=== PATIENT | female | born 2000 | race Caucasian/White ===

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

== ENCOUNTER 2019-06-11 17:49 | Emergency (ER) | payer BC, OTHER ==
[~2019-06-11] VITALS: Ht 149.9 cm; Wt 47.0 kg
[~2019-06-11 17:49] MED LIST: ALBU8.5H8 INH; CETI10CA PO; FLUT12HF IH; IBUP-1542 PO; IBUP-1561 PO; MOME17SP14 NASAL; PRED20TA PO; PSEU120T11 PO
[2019-06-11 18:11] VITALS: Ht 149.9 cm; Wt 47.0 kg
--- NOTE | 2019-06-11 19:25 | ERD ---
ER Documentation Chief Complaint Chief Complaint sob HPI The patient is a 18-year-old female, presenting to the ER because of intermittent cough with dyspnea for 1 week, denies fever, chills, nasal congestion, neck pain, chest pain, the coughing spell made her short of breath, denies abdominal pain, vomiting, dysuria, diarrhea. She does not smoke nor drink. Past medical history: Asthma Past surgical history: None ROS All systems reviewed and are negative except as per history of present illness. Medications Home Meds Active Scripts Prednisone* (Prednisone*) 20 Mg Tab, 50 MG PO DAILY for 5 Days, TAB Prov:IMANI HORTON MD 06/11/19 Salmeterol Xinaf-Fluticasone* (Advair HFA*) 45/212 Aerosol Inhaler, 2 INH IH BID, #1 INHALER Prov:IMANI HORTON MD 06/11/19 Albuterol Sulfate* (Proair HFA*) 8.5 Gm Hfa.aer.ad, 2 PUFF INH Q4H PRN for WHEEZING AND SOB, #1 INHALER Prov:IMANI HORTON MD 06/11/19 Pseudoephedrine Hcl (Sudafe 12-Hour) 120 Mg Tablet.er, 120 MG PO BID PRN for CONGESTION, #6 TAB.SA Prov:NAYE SHOEMAKER PA-C 11/05/17 Cetirizine Hcl* (Zyrtec*) 10 Mg Capsule, 10 MG PO DAILY, #10 TAB.CHEW Prov:NAYE SHOEMAKER PA-C 11/05/17 Ibuprofen* (Motrin*) 600 Mg Tab, 600 MG PO Q6, #30 TAB Prov:NAYE SHOEMAKER PA-C 11/05/17 Mometasone Furoate* (Nasonex*) 50 Mcg/[place] - 17 Gm [place].pump, 1 SPRAY NASAL BID, #1 BOTTLE IN EACH NOSTRIL Prov:NAYE SHOEMAKER PA-C 11/05/17 Ibuprofen* (Motrin*) 400 Mg Tab, 400 MG PO Q6H PRN for PAIN AND OR ELEVATED TEMP, #30 Prov:DK ISRAEL NP 08/25/15 Allergies Allergies: Coded Allergies: No Known Drug Allergies (Verified Allergy, Unknown, 08/25/15) PMhx/Soc History of Surgery: No Anesthesia Reaction: No Hx Neurological Disorder: No Hx Respiratory Disorders: No Hx Cardiac Disorders: No Hx Psychiatric Problems: No Hx Miscellaneous Medical Probl: No Hx Alcohol Use: No Hx Substance Use: No Hx Tobacco Use: No Physical Exam Vitals Vital Signs Date Temp Pulse Resp B/P (MAP) Pulse Ox O2 O2 Flow FiO2 Time Delivery Rate 06/11/19 97.9 88 20 105/69 100 Room Air 20:20 (81) 06/11/19 82 18 100 21 19:42 06/11/19 97.9 104 26 101/69 100 18:11 (80) Physical Exam Const: No acute distress. Head: Atraumatic. Eyes: Normal Conjunctiva. ENT: Normal External Ears, Nose and Mouth. Neck: Full range of motion. No meningismus. Resp: Clear to auscultation bilaterally. Cardio: Minimal bilateral expiratory wheezes Abd: Soft, non distended, normal bowel sounds, non tender. Skin: No petechiae or rashes. Back: No midline or flank tenderness. Ext: No cyanosis, or edema. Neur: Awake and alert. No focal deficit Psych: Normal Mood and Affect. Results 24 hrs Current Medications Medications Dose Sig/Chucky Start Time Status Last (Trade) Ordered Route PRN Stop Time Admin Dose Reason Admin Ipratropium 0.5 mg ONCE STAT 06/11/19 DC 06/11/19 [place] NEB 19:31 06/11/19 19:42 (Atrovent 19:33 0.02% (Neb)) 1.25 mg ONCE STAT 06/11/19 DC 06/11/19 Levalbuterol INH 19:31 06/11/19 19:42 (Xopenex 19:33 Neb) Prednisone 50 mg ONCE ONCE 06/11/19 DC 06/11/19 (Prednisone) PO 20:00 06/11/19 19:50 20:01 Procedures/MDM MEDICAL MAKING DECISION: The patient is a 18-year-old female, presenting with acute asthma, was treated with Xopenex 1.25 mg and Atrovent 0.5 mg and pr ednisone 50 mg p.o. with good response, is stable for outpatient follow-up The differential diagnoses considered include but are not limited to acute asthma, pneumonia, reactive airway disease Departure Diagnosis: Primary Impression: Asthma exacerbation Condition: Good Comments She was discharged with Advair, albuterol, prednisone I discussed the findings with the patient. I advised the patient to follow-up with the primary physician in about 1-2 days, sooner if needed and return if any concern. Disclaimer: Inadvertent spelling and grammatical errors are likely due to EHR/dictation software use and do not reflect on the overall quality of patient care. Also, please note that the electronic time recorded on this note does not necessarily reflect the actual time of the patient encounter. IMANI HORTON MD Jun 11, 2019 19:25
[2019-06-11] MEDS: LEVALBUTEROL (NEB) 1.25 MG/0.5 ML AMP INH STA ×2 (19:36→19:42)
[2019-06-11] MEDS: IPRATROPIUM (NEB) 0.5 MG/2.5 ML AMP NEB STA ×2 (19:36→19:42)
[2019-06-11] MEDS ORDERED: predniSONE 50 MG TAB PO ONE (20:00)
[2019-06-11 20:20] VITALS: BP 105/69; PULSE 88; RESP 20
== END 2019-06-11 20:21 | disposition home or self-care (01) ==
LOC: FTE 17:49
DX: J45.901 Unspecified asthma with (acute) exacerbation (principal)
CPT/HCPCS: 94664; 99283; J7512